=== PATIENT | male | born 1945 | race Caucasian/White ===

== ENCOUNTER → 2017-02-18 | Outpatient (CLI) | payer MEDICARE, BC ==
[~2017-02-18] MED LIST: ACETAMINOPHEN650 M1 PO; ALPRAZOLAM0.5 MG PO; ANDROGEL1.25 GM TOP; ARIMIDEX1 MG PO; ARMOUR THYROID90 MG PO; ASPIRIN EC81 MG PO; BYSTOLIC2.5 MG PO; COQ-10100 MG PO; ENBREL50 MG/1 ML IM; FLOMAX0.4 MG PO; LEVAQUIN 250 M250 MG PO; LEXAPRO10 MG PO; LIPITOR40 MG PO; NEOSPORIN1 PKT TOP; POTASSIUM CITR10 MEQ PO; TYLENOL/COD#3**1 TAB PO; VITAMIN D5000 UNI1 PO
[2017-02-18 09:56] LABS: ALBUMIN 3.5 gm/dL (3.5-5.0); CALCIUM 8.7 mg/dL (8.5-10.5); CREATININE 1.4 mg/dL (0.6-1.3); TOTAL BILIRUBIN 0.5 mg/dL (0.0-1.5); TOTAL PROTEIN 6.1 g/dL (6.0-8.4)
== END | disposition disaster alternative care site (69) ==
LOC: GLAB 09:00
PROVIDERS: Urology
DX: Z53.8 Procedure and treatment not carried out for other reasons (principal); N28.1 Cyst of kidney, acquired; Z12.5 Encounter for screening for malignant neoplasm of prostate

== ENCOUNTER → 2017-02-21 | Outpatient (CLI) | payer MEDICARE, BC ==
[2017-02-21 09:03] LABS: ALBUMIN 3.5 gm/dL (3.5-5.0); ANION GAP 12.7 (10.0-19.0); CALCIUM 8.6 mg/dL (8.5-10.5); CREATININE 1.5 mg/dL (0.6-1.3); POTASSIUM 4.7 mMol/L (3.7-5.1); TOTAL BILIRUBIN 0.6 mg/dL (0.0-1.5); TOTAL PROTEIN 6.3 g/dL (6.0-8.4)
== END | disposition disaster alternative care site (69) ==
LOC: GOPD 02-18 11:00 → GRAD 08:02
PROVIDERS: Urology
DX: N28.1 Cyst of kidney, acquired (principal); K80.20 Calculus of gallbladder without cholecystitis without obstruction; N20.0 Calculus of kidney

== ENCOUNTER 2017-04-13 08:26 | Day surgery (SDC) | payer MEDICARE, BC ==
[~2017-04-13] VITALS: Ht 172.7 cm; Wt 85.6 kg
--- NOTE | ~2017-04-13 | OR ---
PATIENT'S NAME: HAMMAD GALVIN [facility] AGE: 71 Y [address] ROOM: [place] [address] LOCATION: [facility] [place] DATE: 04/13/2017 OR/Procedure Report DISCHARGE DATE: FAMILY PHYSICIAN: ECHO PENALOZA MD ATTENDING PHYSICIAN: Joie Fisher SURGEON: Joie Fisher MD PATIENT CARE SPECIALIST: DATE OF PROCEDURE: 04/13/2017 PREOPERATIVE DIAGNOSIS: Benign prostatic hypertrophy with lower urinary tract symptoms. POSTOPERATIVE DIAGNOSIS: Benign prostatic hypertrophy with lower urinary tract symptoms. PROCEDURE PERFORMED: Cystoscopy, TURP. ANESTHESIA: General. COMPLICATIONS: None. INDICATION FOR PROCEDURE: The patient is a 71-year-old male with significant obstructive voiding symptoms secondary to BPH. Cystoscopy reveals moderately severe prostatic enlargement with significant median lobe enlargement. After discussing these findings with the patient, he elected to proceed with TURP. DETAILS OF PROCEDURE: After informed consent was obtained, the patient was taken to the operating room. A general anesthetic was applied, and he was placed in the dorsal lithotomy position. The groin area was prepped and draped in normal sterile fashion. Resectoscope sheath was then introduced into the urethra and bladder without difficulty. Again, the patient was noted to have a significantly enlarged median lobe. The resectoscope was then introduced and resection was begun at the floor of prostate, at the bladder neck to the level of the verumontanum. I resected the median lobe down towards crossing fibers at the bladder neck and towards the verumontanum. I then began resecting lateral tissue first on the patient's left side and then the right side. Bleeding areas were fulgurated for good hemostasis. I then continued resecting lateral tissue. There was anterior tissue that was overhanging which was also resected. I then irrigated the bladder free of chips and continued to fulgurate the bleeding areas. Once the resection was completed, the patient had excellent voiding channel. The resectoscope was removed and a 24-Brazilian 3-way Thao catheter was placed on traction. The patient tolerated this procedure well and was transferred to the recovery room in good condition. PATIENT'S NAME: HAMMAD GALVIN [facility] AGE: 71 Y [address] ROOM: [place] [address] LOCATION: [facility] [place] DATE: 04/13/2017 OR/Procedure Report DISCHARGE DATE: FAMILY PHYSICIAN: ECHO PENALOZA MD ATTENDING PHYSICIAN: Joie Fisher MD CHERRIE WARNER/janisl /[id number] CC: Echo Penaloza MD d: 04/14/17 0153 t: 04/25/17 1020, OPERATIVE SUMMARY
[~2017-04-13 08:26] MED LIST changes: -LEVAQUIN 250 M250 MG PO; -NEOSPORIN1 PKT TOP; -TYLENOL/COD#3**1 TAB PO
[2017-04-13 09:13] LABS: BASOPHIL % 0.6 %; EOSINOPHIL # 0.1 K/uL (0.0-0.5); EOSINOPHIL % 2.3 %; HEMATOCRIT 47.2 % (37.0-53.0); HEMOGLOBIN 15.9 g/dL (11.0-16.0); IMMATURE GRANULOCYTE % 0.4 %; LYMPHOCYTE # 1.4 K/uL (0.8-4.0); LYMPHOCYTE % 26.4 %; MCH 31.1 pg (27.0-34.0); MCHC 33.7 gm/dL (32.0-36.5); MCV 92.4 fl (83.0-98.0); MONOCYTE # 0.7 K/uL (0.0-1.0); MONOCYTE % 13.5 %; MPV 9.1 fl (9.4-12.4); NEUTROPHIL % 56.8 %; NRBC % 0 /100WBC (0-0.00); PLATELET COUNT 213 K/uL (150-450); RBC 5.11 M/uL (3.50-5.50); RDW-CV 14.9 % (11.9-14.6); WBC 5.2 K/uL (4.0-11.0)
[2017-04-13 09:31] LABS: ALBUMIN 3.7 gm/dL (3.5-5.0); ANION GAP 11.2 (10.0-19.0); CALCIUM 8.7 mg/dL (8.5-10.5); CREATININE 1.4 mg/dL (0.6-1.3); POTASSIUM 4.2 mMol/L (3.7-5.1); TOTAL BILIRUBIN 0.7 mg/dL (0.0-1.5); TOTAL PROTEIN 6.6 g/dL (6.0-8.4)
--- NOTE | 2017-04-13 15:57 | NUR ---
Patient arrived from surgery at 1400. CBI running at a moderate rate, light pink urine. On bedrest, advance diet as tolerated. D5 1/2 NS infusing at 125ml/hr in the R) wrist. Only complaint is a burning sensation in the penis from the catheter. Will give pain medication when available.
[2017-04-14] MEDS ORDERED: LEVAQUIN 250 M250 MG PO (07:46)
[2017-04-14] MEDS ORDERED: NEOSPORIN1 PKT TOP (07:49)
[2017-04-14] MEDS ORDERED: TYLENOL/COD#3**1 TAB PO (08:09)
== END 2017-04-14 15:50 | disposition home health service (06) ==
LOC: GMSU 08:26 → GSDC 08:26 → GMSU 15:10 → GSDC 04-14 15:50
PROVIDERS: Urology
PROC: 0VB08ZZ Excision of Prostate, Via Natural or Artificial Opening Endoscopic (ICD-10-PCS; principal; 2017-04-13)
DX: N40.1 Benign prostatic hyperplasia with lower urinary tract symptoms (principal); N41.1 Chronic prostatitis; M19.90 Unspecified osteoarthritis, unspecified site; F32.9 Major depressive disorder, single episode, unspecified; F41.9 Anxiety disorder, unspecified; I25.10 Atherosclerotic heart disease of native coronary artery without angina pectoris; I25.2 Old myocardial infarction; L40.9 Psoriasis, unspecified; E78.00 Pure hypercholesterolemia, unspecified; I10 Essential (primary) hypertension; E03.9 Hypothyroidism, unspecified; Z87.442 Personal history of urinary calculi; Z98.49 Cataract extraction status, unspecified eye; Z98.890 Other specified postprocedural states; Z79.82 Long term (current) use of aspirin; Z79.899 Other long term (current) drug therapy; Z91.041 Radiographic dye allergy status; Z91.040 Latex allergy status
CPT/HCPCS: J1956; J2001; J2270; J3010; J7120